=== PATIENT | male | born 1970 | race Hispanic/Latino ===

== ENCOUNTER → 2021-06-15 | Outpatient (CLI) | payer OTHER ==
[~2021-06-15] MED LIST: GADOTERATE MEGLUMINE 10 MMOL/20 ML VIAL IV ONE
== END | disposition home or self-care (01) ==
LOC: RAH 08:04
PROVIDERS: ATTEND Internal Medicine
DX: H70.893 Other mastoiditis and related conditions, bilateral (principal); E22.1 Hyperprolactinemia; E29.1 Testicular hypofunction
CPT/HCPCS: 70553; A9575